=== PATIENT | female | born 1980 | race African-American/Black ===

== ENCOUNTER 2021-03-23 08:49 | Inpatient (IN) | payer MEDICAID ==
[~2021-03-23] VITALS: Ht 177.8 cm; Wt 168.4 kg
[2021-03-23] MEDS ORDERED: DexAMETHasone SOD PHOS 10MG/1ML VIAL INJ IV ONE (09:45)
[2021-03-23] MEDS ORDERED: cefTRIAXone 1GM/50ML D5W 50 ML IV ONE (09:45)
[2021-03-23 10:02] LABS: Basophils # (auto) 0 10 ^3/uL (0-0.2); Eosinophils # (auto) 0 10 ^3/uL (0-0.8); Hematocrit 29.8 % (36.0-46.0); Hemoglobin 9.7 g/dL (12.2-16.2); Lymphocytes # (auto) 0.8 10 ^3/uL (0.4-5.4); Mean Corpuscular Hgb Conc. 32.7 g/dL (32.0-36.0); Monocytes # (auto) 0.5 10 ^3/uL (0-1.3); Neutrophils # (auto) 5.8 10 ^3/uL (1.6-8.6); Nucleated Red Blood Cells % 0.1 %; Red Blood Cells 3.91 10^6/uL (4.0-5.20)
[2021-03-23 10:04] LABS: Basophils % (auto) 0.5 % (0.0-2.0); Lymphocytes % (auto) 11.6 % (10.0-50.0); Mean Corpuscular Hemoglobin 24.8 pg (28.0-32.0); Monocytes % (auto) 7.4 % (0.0-12.0); Neutrophils % (auto) 80.5 % (37.0-80.0); Red Cell Distribution Width 14.6 % (11.8-14.3); White Blood Cell 7.2 10^3/uL (4.4-10.8)
[2021-03-23 10:23] LABS: Albumin 2.5 g/dL (3.4-5.0); Calcium 8.5 mg/dL (8.5-10.1); Potassium 3.3 mmol/L (3.5-5.1)
[2021-03-23 10:24] LABS: Lactic Acid w/Reflex 2.5 mmol/L (0.4-2.0)
[2021-03-23 10:32] LABS: Bilirubin, Total 0.4 mg/dL (0.2-1.0); CRP High Sensitivity 11.4 mg/dL (< 0.3); Total Protein 7.8 g/dL (6.4-8.2)
[2021-03-23] MEDS ORDERED: REMDESIVIR PER PHARMACY 0 ML IV SCH (13:15)
[2021-03-23] MEDS ORDERED: MORPHINE SULFATE INJECTION 2 MG/2 ML SYRG IV PRN (13:15)
[2021-03-23] MEDS ORDERED: DEXTROSE (50%) 50ML SYRG IV PRN (13:15)
[2021-03-23] MEDS ORDERED: NITROGLYCERIN 0.4 MG SL TAB SL PRN (13:15)
[2021-03-23] MEDS ORDERED: guaiFENesin-DM 100/10mg/5ml SYR PO PRN (13:15)
[2021-03-23] MEDS ORDERED: ACETAMINOPHEN 500 MG TAB PO PRN (13:15)
[2021-03-23 16:00] VITALS: BP 161/78
[2021-03-23] MEDS: ACCU-CHEK COMFORT CURVE STRIP VI SCH ×2 (16:42→22:09)
[2021-03-23] MEDS: InsuLIN REG 1unit/0.01ml Soln (100units/ml) SC SCH ×2 (16:42→22:19)
[2021-03-23] MEDS: ENOXAPARIN SOD 40 MG/0.4 ML SYRINGE SC SCH (22:09)
[2021-03-24 05:41] VITALS: BP 158/105
[2021-03-24 05:45] VITALS: BP 158/105
[2021-03-24] MEDS: InsuLIN REG 1unit/0.01ml Soln (100units/ml) SC SCH ×4 (06:29→21:43)
[2021-03-24] MEDS: ACCU-CHEK COMFORT CURVE STRIP VI SCH ×4 (06:30→21:32)
[2021-03-24] MEDS ORDERED: METF-370 PO (06:56)
[2021-03-24] MEDS ORDERED: IVERMECTIN 3 MG TAB PO ONE ×2 (07:00)
[2021-03-24 09:00] VITALS: BP 134/90
[2021-03-24] MEDS: cefTRIAXone 1GM/50ML D5W 50 ML IV SCH (10:04)
[2021-03-24] MEDS: ENOXAPARIN SOD 40 MG/0.4 ML SYRINGE SC SCH ×2 (10:04→21:32)
[2021-03-24] MEDS: AZITHROMYCIN 500MG/ 250ML 250 ML IV SCH (10:04)
[2021-03-24] MEDS: ASCORBIC ACID 1,000 MG TAB PO SCH (10:05)
[2021-03-24] MEDS: DexAMETHasone SOD PHOS 10MG/1ML VIAL INJ IV SCH (10:05)
[2021-03-24] MEDS: ZINC SULFATE 220mg CAP or TAB PO SCH (10:05)
[2021-03-24] MEDS: CHOLECALCIFEROL (VITD3) 2,000 UNIT CAP/TAB PO SCH (10:06)
[2021-03-24] MEDS: ALBUTEROL SULF HFA 90MCG INH 200DOSE IN PRN ×2 (10:07→22:51)
[2021-03-24] MEDS: BUDESONIDE (INHALATION) 180 MCG IH IN SCH ×2 (10:07→22:00)
[2021-03-24] MEDS ORDERED: hydrALAZINE HCL 20 MG/ML VL IV PRN (12:30)
[2021-03-24] MEDS ORDERED: amLODIPine BESYLATE 5 MG TAB PO ONE (12:30)
[2021-03-24 12:37] VITALS: BP 142/90
[2021-03-24] MEDS ORDERED: REMDESIVIR 200 MG in NS 210ml LOADING DOSE ADULT IV ONE (15:00)
[2021-03-24 16:42] VITALS: BP 139/91
[2021-03-24] MEDS: INSULIN LANTUS (GLARGINE) 1 /0.01ml (100units/ml) SC SCH (21:43)
[2021-03-24 22:00] VITALS: BP 129/85
[2021-03-25 05:00] VITALS: BP 152/87
[2021-03-25] MEDS: ACCU-CHEK COMFORT CURVE STRIP VI SCH ×4 (06:36→22:05)
[2021-03-25] MEDS: InsuLIN REG 1unit/0.01ml Soln (100units/ml) SC SCH ×4 (06:40→22:07)
[2021-03-25 06:45] LABS: Basophils # (auto) 0 10 ^3/uL (0-0.2); Basophils % (auto) 0.2 % (0.0-2.0); Monocytes # (auto) 0.5 10 ^3/uL (0-1.3); Nucleated Red Blood Cells % 0.4 %; Red Cell Distribution Width 14.8 % (11.8-14.3)
[2021-03-25 06:54] LABS: Eosinophils # (auto) 0.1 10 ^3/uL (0-0.8); Eosinophils % (auto) 2.3 % (0.0-7.0); Hematocrit 35.6 % (36.0-46.0); Lymphocytes # (auto) 1.2 10 ^3/uL (0.4-5.4); Lymphocytes % (auto) 26.4 % (10.0-50.0); Mean Corpuscular Hgb Conc. 33.8 g/dL (32.0-36.0); Mean Corpuscular Volume 77.1 fL (80.0-100.0); Monocytes % (auto) 11.5 % (0.0-12.0); Neutrophils # (auto) 2.7 10 ^3/uL (1.6-8.6); Neutrophils % (auto) 59.6 % (37.0-80.0); Red Blood Cells 4.62 10^6/uL (4.0-5.20); White Blood Cell 4.5 10^3/uL (4.4-10.8)
[2021-03-25] MEDS: ALBUTEROL SULF HFA 90MCG INH 200DOSE IN PRN ×2 (06:57→20:23)
[2021-03-25] MEDS: BUDESONIDE (INHALATION) 180 MCG IH IN SCH ×2 (06:57→20:22)
[2021-03-25 07:16] LABS: Albumin 2.1 g/dL (3.4-5.0); BUN/Creatinine Ratio 17.6; Bilirubin, Total 0.3 mg/dL (0.2-1.0); Calcium 8.1 mg/dL (8.5-10.1); Total Protein 7.1 g/dL (6.4-8.2)
[2021-03-25 07:41] LABS: CRP High Sensitivity 8.55 mg/dL (< 0.3); Potassium 3.9 mmol/L (3.5-5.1)
[2021-03-25] MEDS ORDERED: HYDROcodone-ACET 5/325MG TAB PO PRN (08:15)
[2021-03-25] MEDS: PANTOPRAZOLE 40 MG/10 ML VIAL INJ IV SCH (08:36)
[2021-03-25] MEDS: DexAMETHasone SOD PHOS 10MG/1ML VIAL INJ IV SCH (08:36)
[2021-03-25] MEDS: cefTRIAXone 1GM/50ML D5W 50 ML IV SCH (08:36)
[2021-03-25] MEDS: CHOLECALCIFEROL (VITD3) 2,000 UNIT CAP/TAB PO SCH (08:37)
[2021-03-25] MEDS: ZINC SULFATE 220mg CAP or TAB PO SCH (08:37)
[2021-03-25] MEDS: ASCORBIC ACID 1,000 MG TAB PO SCH (08:37)
[2021-03-25] MEDS: INSULIN LANTUS (GLARGINE) 1 /0.01ml (100units/ml) SC SCH ×2 (08:57→22:07)
[2021-03-25 09:00] VITALS: BP 161/88
[2021-03-25] MEDS: AZITHROMYCIN 500MG/ 250ML 250 ML IV SCH (10:28)
[2021-03-25] MEDS: ENOXAPARIN SOD 40 MG/0.4 ML SYRINGE SC SCH ×2 (10:29→22:05)
[2021-03-25] MEDS: amLODIPine BESYLATE 5 MG TAB PO SCH (10:29)
[2021-03-25 13:00] VITALS: BP 159/87
[2021-03-25] MEDS ORDERED: POTASSIUM CHL 20 Meq TABLET PO ONE (14:45)
[2021-03-25] MEDS: REMDESIVIR 100mg 100 MG in SODIUM CHL 0.9% 230 ML IV SCH (14:59)
[2021-03-25 17:00] VITALS: BP 159/83
[2021-03-25 22:00] VITALS: BP 138/83
[2021-03-26 05:00] VITALS: BP 135/80
[2021-03-26] MEDS: InsuLIN REG 1unit/0.01ml Soln (100units/ml) SC SCH ×4 (06:22→23:00)
[2021-03-26] MEDS: ACCU-CHEK COMFORT CURVE STRIP VI SCH ×4 (06:23→23:00)
[2021-03-26] MEDS: BUDESONIDE (INHALATION) 180 MCG IH IN SCH ×2 (07:32→22:00)
[2021-03-26] MEDS: ALBUTEROL SULF HFA 90MCG INH 200DOSE IN PRN ×2 (07:32→22:44)
[2021-03-26 07:42] LABS: Albumin 2.4 g/dL (3.4-5.0); BUN/Creatinine Ratio 17.3; Bilirubin, Total 0.5 mg/dL (0.2-1.0); Calcium 8.8 mg/dL (8.5-10.1); Magnesium 2.6 mg/dL (1.6-2.6); Phosphorus 3.1 mg/dL (2.5-4.90); Potassium 4.9 mmol/L (3.5-5.1); Total Protein 8.1 g/dL (6.4-8.2)
[2021-03-26] MEDS: cefTRIAXone 1GM/50ML D5W 50 ML IV SCH (09:25)
[2021-03-26] MEDS: PANTOPRAZOLE 40 MG/10 ML VIAL INJ IV SCH (09:26)
[2021-03-26] MEDS: ASCORBIC ACID 1,000 MG TAB PO SCH (09:27)
[2021-03-26] MEDS: ZINC SULFATE 220mg CAP or TAB PO SCH (09:27)
[2021-03-26] MEDS: amLODIPine BESYLATE 5 MG TAB PO SCH (09:27)
[2021-03-26 09:28] VITALS: BP 101/69
[2021-03-26] MEDS: CHOLECALCIFEROL (VITD3) 2,000 UNIT CAP/TAB PO SCH (09:28)
[2021-03-26] MEDS: ENOXAPARIN SOD 40 MG/0.4 ML SYRINGE SC SCH ×2 (09:28→23:00)
[2021-03-26] MEDS: INSULIN LANTUS (GLARGINE) 1 /0.01ml (100units/ml) SC SCH ×2 (10:07→23:00)
[2021-03-26] MEDS: DexAMETHasone SOD PHOS 10MG/1ML VIAL INJ IV SCH (10:14)
[2021-03-26 11:10] VITALS: BP 101/69
[2021-03-26] MEDS: REMDESIVIR 100mg 100 MG in SODIUM CHL 0.9% 230 ML IV SCH (13:53)
[2021-03-26] MEDS ORDERED: ALPRAZolam 0.5 MG TAB PO PRN (14:15)
[2021-03-26] MEDS ORDERED: LACTULOSE 20Gm/30ML SOLN PO PRN (14:15)
[2021-03-26 17:12] VITALS: BP 126/80
[2021-03-26 22:20] VITALS: BP 131/84
[2021-03-27 05:20] VITALS: BP 134/75
[2021-03-27 05:46] LABS: Urine Bacteria NONE SEEN /hpf (None Seen); Urine Blood 2+ /uL (Negative); Urine Hyaline Cast FEW /lpf (0 - 2); Urine Mucus FEW (None Seen); Urine Specific Gravity 1.023 (1.001-1.035); Urine WBC 79 /hpf (0 - 5)
[2021-03-27 06:42] LABS: Basophils # (auto) 0 10 ^3/uL (0-0.2); Basophils % (auto) 0.1 % (0.0-2.0); Eosinophils # (auto) 0 10 ^3/uL (0-0.8); Eosinophils % (auto) 0.1 % (0.0-7.0); Lymphocytes # (auto) 1.3 10 ^3/uL (0.4-5.4); Mean Corpuscular Hemoglobin 25.5 pg (28.0-32.0); Monocytes # (auto) 0.7 10 ^3/uL (0-1.3)
[2021-03-27 06:46] LABS: Hematocrit 35.2 % (36.0-46.0); Hemoglobin 11.8 g/dL (12.2-16.2); Lymphocytes % (auto) 20.5 % (10.0-50.0); Mean Corpuscular Hgb Conc. 33.6 g/dL (32.0-36.0); Neutrophils # (auto) 4.2 10 ^3/uL (1.6-8.6); Neutrophils % (auto) 68.3 % (37.0-80.0); Nucleated Red Blood Cells % 0.1 %; Red Blood Cells 4.63 10^6/uL (4.0-5.20); Red Cell Distribution Width 14.7 % (11.8-14.3); White Blood Cell 6.2 10^3/uL (4.4-10.8)
[2021-03-27 06:58] LABS: Albumin 2.5 g/dL (3.4-5.0); Calcium 8.7 mg/dL (8.5-10.1); Magnesium 2.3 mg/dL (1.6-2.6); Potassium 3.5 mmol/L (3.5-5.1)
[2021-03-27] MEDS: InsuLIN REG 1unit/0.01ml Soln (100units/ml) SC SCH ×4 (07:00→22:07)
[2021-03-27] MEDS: ALBUTEROL SULF HFA 90MCG INH 200DOSE IN PRN ×2 (07:00→19:48)
[2021-03-27] MEDS: ACCU-CHEK COMFORT CURVE STRIP VI SCH ×4 (07:00→22:05)
[2021-03-27] MEDS: BUDESONIDE (INHALATION) 180 MCG IH IN SCH ×2 (07:00→19:45)
[2021-03-27 07:10] LABS: BUN/Creatinine Ratio 18.4; Bilirubin, Total 0.4 mg/dL (0.2-1.0); CRP High Sensitivity 4.63 mg/dL (< 0.3); Phosphorus 3.7 mg/dL (2.5-4.90); Total Protein 7.3 g/dL (6.4-8.2)
[2021-03-27 09:00] VITALS: BP 125/75
[2021-03-27] MEDS: DexAMETHasone SOD PHOS 10MG/1ML VIAL INJ IV SCH (09:31)
[2021-03-27] MEDS: cefTRIAXone 1GM/50ML D5W 50 ML IV SCH (09:31)
[2021-03-27] MEDS: ZINC SULFATE 220mg CAP or TAB PO SCH (09:32)
[2021-03-27] MEDS: PANTOPRAZOLE 40 MG/10 ML VIAL INJ IV SCH (09:32)
[2021-03-27] MEDS: amLODIPine BESYLATE 5 MG TAB PO SCH (09:33)
[2021-03-27] MEDS: ASCORBIC ACID 1,000 MG TAB PO SCH (09:34)
[2021-03-27] MEDS: AZITHROMYCIN 250 MG TAB PO SCH (09:34)
[2021-03-27] MEDS: ENOXAPARIN SOD 40 MG/0.4 ML SYRINGE SC SCH ×2 (09:34→21:24)
[2021-03-27] MEDS: CHOLECALCIFEROL (VITD3) 2,000 UNIT CAP/TAB PO SCH (09:34)
[2021-03-27] MEDS: INSULIN LANTUS (GLARGINE) 1 /0.01ml (100units/ml) SC SCH ×2 (09:52→22:06)
[2021-03-27] MEDS ORDERED: IOHEXOL 350 MG/ML 100ML IJ ONE (10:09)
[2021-03-27 13:00] VITALS: BP 125/86
[2021-03-27] MEDS: REMDESIVIR 100mg 100 MG in SODIUM CHL 0.9% 230 ML IV SCH (15:22)
[2021-03-27 17:00] VITALS: BP 116/64
[2021-03-27 22:20] VITALS: BP 141/83
[2021-03-28 05:28] VITALS: BP 129/75
[2021-03-28] MEDS: InsuLIN REG 1unit/0.01ml Soln (100units/ml) SC SCH ×4 (06:06→21:32)
[2021-03-28] MEDS: ACCU-CHEK COMFORT CURVE STRIP VI SCH ×4 (06:06→21:32)
[2021-03-28] MEDS: ALBUTEROL SULF HFA 90MCG INH 200DOSE IN PRN ×2 (06:22→20:09)
[2021-03-28 09:00] VITALS: BP 108/83
[2021-03-28] MEDS: cefTRIAXone 1GM/50ML D5W 50 ML IV SCH (10:20)
[2021-03-28] MEDS: DexAMETHasone SOD PHOS 10MG/1ML VIAL INJ IV SCH (10:20)
[2021-03-28] MEDS: ZINC SULFATE 220mg CAP or TAB PO SCH (10:20)
[2021-03-28] MEDS: PANTOPRAZOLE 40 MG/10 ML VIAL INJ IV SCH (10:20)
[2021-03-28] MEDS: CHOLECALCIFEROL (VITD3) 2,000 UNIT CAP/TAB PO SCH (10:21)
[2021-03-28] MEDS: amLODIPine BESYLATE 5 MG TAB PO SCH (10:21)
[2021-03-28] MEDS: ENOXAPARIN SOD 40 MG/0.4 ML SYRINGE SC SCH ×2 (10:21→21:17)
[2021-03-28] MEDS: AZITHROMYCIN 250 MG TAB PO SCH (10:21)
[2021-03-28] MEDS: ASCORBIC ACID 1,000 MG TAB PO SCH (10:21)
[2021-03-28] MEDS: INSULIN LANTUS (GLARGINE) 1 /0.01ml (100units/ml) SC SCH ×2 (12:18→21:29)
[2021-03-28 13:00] VITALS: BP 133/75
[2021-03-28] MEDS: REMDESIVIR 100mg 100 MG in SODIUM CHL 0.9% 230 ML IV SCH (16:22)
[2021-03-28 17:00] VITALS: BP 126/87
[2021-03-28] MEDS: BUDESONIDE (INHALATION) 180 MCG IH IN SCH (20:09)
[2021-03-28 22:00] VITALS: BP 137/75
[2021-03-29 05:00] VITALS: BP 127/68
[2021-03-29] MEDS: ALBUTEROL SULF HFA 90MCG INH 200DOSE IN PRN (05:55)
[2021-03-29] MEDS: BUDESONIDE (INHALATION) 180 MCG IH IN SCH (05:55)
[2021-03-29] MEDS: InsuLIN REG 1unit/0.01ml Soln (100units/ml) SC SCH ×2 (06:43→11:58)
[2021-03-29] MEDS: ACCU-CHEK COMFORT CURVE STRIP VI SCH ×2 (06:43→11:57)
[2021-03-29 07:03] LABS: Basophils # (auto) 0.1 10 ^3/uL (0-0.2); Basophils % (auto) 0.9 % (0.0-2.0); Eosinophils # (auto) 0 10 ^3/uL (0-0.8); Eosinophils % (auto) 0.5 % (0.0-7.0); Hematocrit 33.9 % (36.0-46.0); Hemoglobin 11.1 g/dL (12.2-16.2); Lymphocytes # (auto) 1.9 10 ^3/uL (0.4-5.4); Lymphocytes % (auto) 28.9 % (10.0-50.0); Mean Corpuscular Hemoglobin 25.1 pg (28.0-32.0); Mean Corpuscular Hgb Conc. 32.7 g/dL (32.0-36.0); Mean Corpuscular Volume 76.7 fL (80.0-100.0); Monocytes # (auto) 0.7 10 ^3/uL (0-1.3); Monocytes % (auto) 9.8 % (0.0-12.0); Neutrophils % (auto) 59.9 % (37.0-80.0); Nucleated Red Blood Cells % 0.1 %; Red Blood Cells 4.43 10^6/uL (4.0-5.20); Red Cell Distribution Width 14.5 % (11.8-14.3); White Blood Cell 6.7 10^3/uL (4.4-10.8)
[2021-03-29 07:44] LABS: Potassium 3.7 mmol/L (3.5-5.1)
[2021-03-29 08:00] VITALS: BP 130/86
[2021-03-29 08:09] LABS: Albumin 2.1 g/dL (3.4-5.0); BUN/Creatinine Ratio 24.3; Bilirubin, Total 0.3 mg/dL (0.2-1.0); CRP High Sensitivity 1.78 mg/dL (< 0.3); Calcium 8.2 mg/dL (8.5-10.1); Total Protein 6.7 g/dL (6.4-8.2)
[2021-03-29 09:01] VITALS: BP 130/86
[2021-03-29] MEDS: ZINC SULFATE 220mg CAP or TAB PO SCH (09:38)
[2021-03-29] MEDS: PANTOPRAZOLE 40 MG/10 ML VIAL INJ IV SCH (09:38)
[2021-03-29] MEDS: cefTRIAXone 1GM/50ML D5W 50 ML IV SCH (09:38)
[2021-03-29] MEDS: CHOLECALCIFEROL (VITD3) 2,000 UNIT CAP/TAB PO SCH (09:39)
[2021-03-29] MEDS: amLODIPine BESYLATE 5 MG TAB PO SCH (09:39)
[2021-03-29] MEDS: ASCORBIC ACID 1,000 MG TAB PO SCH (09:39)
[2021-03-29] MEDS: ENOXAPARIN SOD 40 MG/0.4 ML SYRINGE SC SCH (09:40)
[2021-03-29] MEDS: INSULIN LANTUS (GLARGINE) 1 /0.01ml (100units/ml) SC SCH (10:30)
[2021-03-29 12:00] VITALS: BP 129/83
[2021-03-29 15:07] VITALS: BP 129/83
== END 2021-03-29 13:49 | disposition home or self-care (01) | DRG 137 ==
LOC: ER 08:49 → TELE 13:10 → TELE-EAST 03-24 05:00
PROVIDERS: ADMIT Nurse Practitioner Acute Care; ATTEND Internal Medicine
PROC: XW033E5 Introduction of Remdesivir Anti-infective into Peripheral Vein, Percutaneous Approach, New Technology Group 5 (ICD-10-PCS; principal; 2021-03-24)
DX: U07.1 COVID-19 (principal); J96.01 Acute respiratory failure with hypoxia; J12.82 Pneumonia due to coronavirus disease 2019; E43 Unspecified severe protein-calorie malnutrition; E87.3 Alkalosis; D68.59 Other primary thrombophilia; D89.839 Cytokine release syndrome, grade unspecified; Z68.43 Body mass index [BMI] 50.0-59.9, adult; E11.65 Type 2 diabetes mellitus with hyperglycemia; E66.01 Morbid (severe) obesity due to excess calories; J44.0 Chronic obstructive pulmonary disease with (acute) lower respiratory infection; Z82.49 Family history of ischemic heart disease and other diseases of the circulatory system; Z83.3 Family history of diabetes mellitus; Z88.5 Allergy status to narcotic agent
CPT/HCPCS: 36415; 36600; 71045; 71275; 80053; 81001; 82728; 82805; 82962; 83036; 83605; 83735; 84100; 84702; 85025; 85379; 86141; 87040; 87086; 87426; 93970; 94640; 96374; 97110; 97116; 97163; 97530; 99291; C9113; G0378; J0696; J1100; J1815

== ENCOUNTER 2023-02-08 13:17 | Emergency (ER) | payer MEDICAID ==
[~2023-02-08] VITALS: Ht 180.3 cm; Wt 135.9 kg
[~2023-02-08 13:17] MED LIST: METF-370 PO
[2023-02-08 14:59] LABS: Basophils # (auto) 0 10 ^3/uL (0-0.2); Eosinophils # (auto) 0 10 ^3/uL (0-0.8); Lymphocytes % (auto) 15.5 % (10.0-50.0); Neutrophils # (auto) 6.2 10 ^3/uL (1.6-8.6); Nucleated Red Blood Cells % 0.1 %
[2023-02-08 15:01] LABS: Basophils % (auto) 0.6 % (0.0-2.0); Eosinophils % (auto) 0.1 % (0.0-7.0); Lymphocytes # (auto) 1.3 10 ^3/uL (0.4-5.4); Mean Corpuscular Hemoglobin 19.6 pg (28.0-32.0); Mean Corpuscular Hgb Conc. 30.1 g/dL (32.0-36.0); Mean Corpuscular Volume 65.1 fL (80.0-100.0); Monocytes # (auto) 0.6 10 ^3/uL (0-1.3); Monocytes % (auto) 6.9 % (0.0-12.0); Neutrophils % (auto) 76.9 % (37.0-80.0); Red Blood Cells 4.61 10^6/uL (4.0-5.20); Red Cell Distribution Width 16.4 % (11.8-14.3); White Blood Cell 8.1 10^3/uL (4.4-10.8)
[2023-02-08 15:12] LABS: Albumin 3.1 g/dL (3.4-5.0); Calcium 8.7 mg/dL (8.5-10.1); Potassium 3.7 mmol/L (3.5-5.1)
[2023-02-08 15:15] LABS: BUN/Creatinine Ratio 8.2 (10.0-20.0); Bilirubin, Total 0.3 mg/dL (0.2-1.0); Total Protein 7.2 g/dL (6.4-8.2)
[2023-02-08] MEDS ORDERED: methylPREDNISolone SOD SUCC 125 MG/2 ML VL IM ONE (16:00)
[2023-02-08] MEDS ORDERED: KETOROLAC TROMETH 30 MG/ML 1ML VIAL IM ONE (16:00)
[2023-02-08] MEDS ORDERED: DICL-163 PO (17:10)
[2023-02-08] MEDS ORDERED: CYCL-837 PO (17:10)
[2023-02-08 17:42] VITALS: BP 141/57
== END 2023-02-08 17:42 | disposition home or self-care (01) ==
LOC: ER 13:17
DX: D64.9 Anemia, unspecified (principal); G24.3 Spasmodic torticollis; J44.9 Chronic obstructive pulmonary disease, unspecified; E11.9 Type 2 diabetes mellitus without complications; R10.2 Pelvic and perineal pain; Z88.5 Allergy status to narcotic agent
CPT/HCPCS: 36415; 70450; 80053; 84702; 85025; 93005; 96372; 99285; J1885; J2930

== ENCOUNTER 2023-09-02 09:00 | Inpatient (IN) | payer MEDICAID ==
[~2023-09-02] VITALS: Ht 177.8 cm; Wt 103.0 kg
[~2023-09-02 09:00] MED LIST changes: +CYCL-837 PO; +DICL-163 PO
[2023-09-02 09:48] LABS: Basophils # (auto) 0.1 10 ^3/uL (0-0.2); Eosinophils # (auto) 0.3 10 ^3/uL (0-0.8); Hematocrit 44.1 % (36.0-46.0); Lymphocytes # (auto) 2.1 10 ^3/uL (0.4-5.4); Mean Corpuscular Hemoglobin 26.1 pg (28.0-32.0); Monocytes # (auto) 0.6 10 ^3/uL (0-1.3); White Blood Cell 5.2 10^3/uL (4.4-10.8)
[2023-09-02 09:50] LABS: Basophils % (auto) 1.5 % (0.0-2.0); Eosinophils % (auto) 6.6 % (0.0-7.0); Hemoglobin 14.5 g/dL (12.2-16.2); Lymphocytes % (auto) 41.3 % (10.0-50.0); Mean Corpuscular Hgb Conc. 32.9 g/dL (32.0-36.0); Mean Corpuscular Volume 79.3 fL (80.0-100.0); Neutrophils % (auto) 39.6 % (37.0-80.0); Nucleated Red Blood Cells % 0.3 %; Red Blood Cells 5.57 10^6/uL (4.0-5.20); Red Cell Distribution Width 16.5 % (11.8-14.3)
[2023-09-02 10:04] LABS: INR 1.18 (0.9-1.15); Partial Thromboplastin Time 36.7 SEC (24.5-34.5); Prothrombin Time 12.3 sec (9.3-11.8)
[2023-09-02] MEDS: SODIUM CHLORIDE 0.9% 1,000 ML IV ONE ×2 (10:45→10:48)
[2023-09-02 10:47] LABS: Alanine Aminotransferase 18 U/L (7-40); Alkaline Phosphatase 76 U/L (46-116); Anion Gap 17 (5-15); Aspartate Aminotransferase 28 U/L (13-40); BUN/Creatinine Ratio 8.5 (10.0-20.0); Blood Urea Nitrogen 11 mg/dL (9-23); Calcium 9.6 mg/dL (8.7-10.4); Carbon Dioxide 22 mmol/L (20-30); Chloride 93 mmol/L (98-107); Glucose 121 mg/dL (74-106); Magnesium 1.5 mg/dL (1.6-2.6); Potassium 3.6 mmol/L (3.5-5.1); Sodium 132 mmol/L (136-145)
[2023-09-02 10:48] LABS: Albumin 3.9 g/dL (3.2-4.8); Bilirubin, Total 0.8 mg/dL (0.2-1.0); Total Protein 7.2 g/dL (5.7-8.2)
[2023-09-02 14:28] VITALS: PULSE 102; RESP 13; O2SAT 98
[2023-09-02] MEDS ORDERED: TEMAZEPAM 15 MG CAP PO PRN (15:15)
[2023-09-02] MEDS ORDERED: NITROGLYCERIN 0.4 MG SL TAB SL PRN ×2 (15:15→15:30)
[2023-09-02] MEDS: SODIUM CHLORIDE 0.9% 1,000 ML IV SCH (15:30)
[2023-09-02] MEDS ORDERED: KETOROLAC TROMETH 30 MG/ML 1ML VIAL IV PRN (15:30)
[2023-09-02 22:00] VITALS: BP 134/83; PULSE 50; RESP 17; TEMP 98.2; O2SAT 92
[2023-09-03] MEDS: ACCU-CHEK COMFORT CURVE STRIP VI SCH (00:50)
[2023-09-03] MEDS: InsuLIN REG 1unit/0.01ml Soln (100units/ml) SC SCH (00:50)
[2023-09-03 05:00] VITALS: BP 131/79; PULSE 90; RESP 20; TEMP 98.3; O2SAT 99
[2023-09-03 05:29] LABS: Eosinophils # (auto) 0.3 10 ^3/uL (0-0.8); Hemoglobin 13.2 g/dL (12.2-16.2); Lymphocytes # (auto) 1.5 10 ^3/uL (0.4-5.4); Mean Corpuscular Hgb Conc. 33.4 g/dL (32.0-36.0); Monocytes # (auto) 0.5 10 ^3/uL (0-1.3); Neutrophils # (auto) 1.6 10 ^3/uL (1.6-8.6); Nucleated Red Blood Cells % 0.2 %; Red Cell Distribution Width 16.1 % (11.8-14.3)
[2023-09-03 05:32] LABS: Basophils # (auto) 0 10 ^3/uL (0-0.2); Basophils % (auto) 1.2 % (0.0-2.0); Eosinophils % (auto) 8.4 % (0.0-7.0); Hematocrit 39.4 % (36.0-46.0); Lymphocytes % (auto) 37.9 % (10.0-50.0); Mean Corpuscular Hemoglobin 26.5 pg (28.0-32.0); Mean Corpuscular Volume 79.3 fL (80.0-100.0); Monocytes % (auto) 12.4 % (0.0-12.0); Neutrophils % (auto) 40.1 % (37.0-80.0); Red Blood Cells 4.97 10^6/uL (4.0-5.20)
[2023-09-03 05:49] LABS: Alanine Aminotransferase 13 U/L (7-40); Albumin 3.7 g/dL (3.2-4.8); Alkaline Phosphatase 69 U/L (46-116); Anion Gap 11 (5-15); Aspartate Aminotransferase 29 U/L (13-40); BUN/Creatinine Ratio 5.6 (10.0-20.0); Blood Urea Nitrogen 6 mg/dL (9-23); Calcium 9.7 mg/dL (8.5-10.1); Carbon Dioxide 25 mmol/L (20-30); Chloride 96 mmol/L (98-107); Glucose 78 mg/dL (74-106); LDL Cholesterol 120 mg/dL (< 100); Potassium 3.2 mmol/L (3.5-5.1); Sodium 132 mmol/L (136-145); Triglycerides 134 mg/dL (< 150)
[2023-09-03 05:50] LABS: Bilirubin, Total 0.8 mg/dL (0.2-1.0); Cholesterol 165 mg/dL (< 200); HDL Cholesterol 26 mg/dL (40-59)
[2023-09-03 06:30] LABS: Urine Epithelial Cast None Seen /hpf (<5)
[2023-09-03 06:53] LABS: Urine Bacteria NONE SEEN /hpf (None Seen); Urine Blood 3+ /uL (Negative); Urine Clarity HAZY (Clear); Urine Color Red (Yellow); Urine Hyaline Cast MANY /lpf (0 - 2); Urine Protein, UAD 2+ (Negative); Urine WBC 1094 /hpf (0 - 5); Urine WBC Clumps PRESENT /hpf (None Seen); Urine pH 5.5 (5.0-8.0)
[2023-09-03 08:00] VITALS: BP 119/62; PULSE 102; RESP 16; TEMP 36.9; O2SAT 90
[2023-09-03] MEDS: ENOXAPARIN SOD 40 MG/0.4 ML SYRINGE SC SCH (09:49)
[2023-09-03] MEDS: POTASSIUM CHL 20 Meq TABLET PO ONE (09:50)
[2023-09-03] MEDS: PANTOPRAZOLE 40 MG/10 ML VIAL INJ IV SCH (09:50)
[2023-09-03 13:00] VITALS: BP 110/80; PULSE 101; RESP 17; TEMP 97.6; O2SAT 100
[2023-09-03] MEDS: POTASSIUM EFFERVESENT TAB 25 MEQ PO ONE (15:42)
[2023-09-03 17:00] VITALS: BP 116/59; PULSE 58; RESP 22; TEMP 98.4; O2SAT 90
[2023-09-03 17:32] LABS: % Iron Saturation 60.9 % (15-50)
[2023-09-03] MEDS: CEFTRIAXONE SODIUM 2 GM in D5W 5% 100 ML IV SCH (17:45)
[2023-09-03 20:00] VITALS: PULSE 94; RESP 18; TEMP 36.9
[2023-09-03 22:00] VITALS: BP 119/94; PULSE 99; RESP 18; TEMP 98.5; O2SAT 100
[2023-09-04] VITALS (7 sets, daily range): BP systolic 115–121; BP diastolic 83–93; PULSE 104–117; RESP 17–20; TEMP 36.9; O2SAT 97–100
[2023-09-04 08:49] LABS: Basophils # (auto) 0 10 ^3/uL (0-0.2); Basophils % (auto) 0.9 % (0.0-2.0); Mean Corpuscular Hemoglobin 26.3 pg (28.0-32.0); Monocytes # (auto) 0.4 10 ^3/uL (0-1.3); Neutrophils # (auto) 1.6 10 ^3/uL (1.6-8.6); Nucleated Red Blood Cells % 0.1 %; White Blood Cell 3.3 10^3/uL (4.4-10.8)
[2023-09-04 08:52] LABS: Eosinophils # (auto) 0.2 10 ^3/uL (0-0.8); Eosinophils % (auto) 7.5 % (0.0-7.0); Hematocrit 38.9 % (36.0-46.0); Hemoglobin 12.9 g/dL (12.2-16.2); Lymphocytes % (auto) 31.2 % (10.0-50.0); Mean Corpuscular Hgb Conc. 33.2 g/dL (32.0-36.0); Mean Corpuscular Volume 79.3 fL (80.0-100.0); Monocytes % (auto) 12.7 % (0.0-12.0); Neutrophils % (auto) 47.7 % (37.0-80.0); Red Cell Distribution Width 16.2 % (11.8-14.3)
[2023-09-04] MEDS: METOPROLOL TARTRATE 25 MG TAB PO SCH (08:57)
[2023-09-04 09:02] LABS: Alanine Aminotransferase 10 U/L (7-40); Albumin 3.7 g/dL (3.2-4.8); Alkaline Phosphatase 71 U/L (46-116); Anion Gap 9 (5-15); Aspartate Aminotransferase 24 U/L (13-40); Bilirubin, Total 0.5 mg/dL (0.2-1.0); Blood Urea Nitrogen 5 mg/dL (9-23); Calcium 9.4 mg/dL (8.7-10.4); Carbon Dioxide 28 mmol/L (20-30); Chloride 97 mmol/L (98-107); Glucose 65 mg/dL (74-106); Potassium 4.4 mmol/L (3.5-5.1); Sodium 134 mmol/L (136-145)
[2023-09-04] MEDS: ONDANSETRON HCL 4 MG/2 ML VIAL IV PRN (09:14)
[2023-09-05] VITALS (7 sets, daily range): BP systolic 107–131; BP diastolic 66–99; PULSE 75–98; RESP 15–19; TEMP 97.4–98.5; O2SAT 95–100
[2023-09-05] MEDS ORDERED: MAGNESIUM SULFATE 1GM/100ML 100 ML IV SCH
[2023-09-05] MEDS: LINEZOLID 600MG/300ML 300 ML IV SCH (01:21)
[2023-09-05] MEDS: ENOXAPARIN SOD 120 MG/0.8 ML SYRINGE SC SCH (01:34)
[2023-09-05] MEDS: MAGNESIUM SULFATE 1GM/100ML 100 ML IV SCH (02:04)
[2023-09-05 06:03] LABS: Basophils # (auto) 0 10 ^3/uL (0-0.2); Eosinophils # (auto) 0.3 10 ^3/uL (0-0.8); Lymphocytes # (auto) 1.3 10 ^3/uL (0.4-5.4); Monocytes # (auto) 0.4 10 ^3/uL (0-1.3); Neutrophils # (auto) 1.2 10 ^3/uL (1.6-8.6); Nucleated Red Blood Cells % 0.1 %
[2023-09-05 06:07] LABS: Basophils % (auto) 1.2 % (0.0-2.0); Eosinophils % (auto) 9.7 % (0.0-7.0); Hematocrit 34.9 % (36.0-46.0); Hemoglobin 11.8 g/dL (12.2-16.2); Lymphocytes % (auto) 40.2 % (10.0-50.0); Mean Corpuscular Hemoglobin 26.5 pg (28.0-32.0); Mean Corpuscular Hgb Conc. 33.9 g/dL (32.0-36.0); Mean Corpuscular Volume 78.3 fL (80.0-100.0); Monocytes % (auto) 11.4 % (0.0-12.0); Neutrophils % (auto) 37.5 % (37.0-80.0); Red Blood Cells 4.46 10^6/uL (4.0-5.20); Red Cell Distribution Width 15.9 % (11.8-14.3); White Blood Cell 3.2 10^3/uL (4.4-10.8)
[2023-09-05 06:13] LABS: Alanine Aminotransferase 10 U/L (7-40); Albumin 3.2 g/dL (3.2-4.8); Alkaline Phosphatase 62 U/L (46-116); Anion Gap 10 (5-15); Aspartate Aminotransferase 22 U/L (13-40); Bilirubin, Total 0.4 mg/dL (0.2-1.0); Calcium 8.6 mg/dL (8.7-10.4); Carbon Dioxide 23 mmol/L (20-30); Chloride 98 mmol/L (98-107); Glucose 105 mg/dL (74-106); Potassium 3.4 mmol/L (3.5-5.1); Sodium 131 mmol/L (136-145); Total Protein 6.2 g/dL (5.7-8.2)
[2023-09-05 06:28] LABS: BUN/Creatinine Ratio 5.8 (10.0-20.0); Blood Urea Nitrogen < 5 mg/dL (9-23)
[2023-09-05] MEDS: ALBUTEROL SULF 2.5 MG/0.5ML(0.5%) NEB SOLN NEB ONE (19:09)
[2023-09-06] VITALS (7 sets, daily range): BP systolic 109–118; BP diastolic 69–81; PULSE 76–109; RESP 15–18; TEMP 97–98.2; O2SAT 91–93
[2023-09-06 05:56] LABS: Basophils # (auto) 0 10 ^3/uL (0-0.2); Eosinophils # (auto) 0.3 10 ^3/uL (0-0.8); Hemoglobin 11.8 g/dL (12.2-16.2); Lymphocytes # (auto) 1.5 10 ^3/uL (0.4-5.4); Monocytes # (auto) 0.5 10 ^3/uL (0-1.3); Neutrophils # (auto) 1.3 10 ^3/uL (1.6-8.6); Neutrophils % (auto) 36.5 % (37.0-80.0); Nucleated Red Blood Cells % 0.1 %; White Blood Cell 3.5 10^3/uL (4.4-10.8)
[2023-09-06 05:58] LABS: Basophils % (auto) 1.2 % (0.0-2.0); Hematocrit 34.4 % (36.0-46.0); Lymphocytes % (auto) 41.1 % (10.0-50.0); Mean Corpuscular Hemoglobin 26.8 pg (28.0-32.0); Mean Corpuscular Hgb Conc. 34.4 g/dL (32.0-36.0); Mean Corpuscular Volume 77.9 fL (80.0-100.0); Monocytes % (auto) 13.2 % (0.0-12.0); Red Blood Cells 4.42 10^6/uL (4.0-5.20); Red Cell Distribution Width 15.8 % (11.8-14.3)
[2023-09-06 06:10] LABS: Albumin 3.2 g/dL (3.2-4.8); Alkaline Phosphatase 62 U/L (46-116); Anion Gap 13 (5-15); Aspartate Aminotransferase 19 U/L (13-40); Bilirubin, Total 0.4 mg/dL (0.2-1.0); Calcium 8.8 mg/dL (8.7-10.4); Carbon Dioxide 22 mmol/L (20-30); Chloride 99 mmol/L (98-107); Glucose 61 mg/dL (74-106); Magnesium 1.7 mg/dL (1.6-2.6); Potassium 3.4 mmol/L (3.5-5.1); Sodium 134 mmol/L (136-145)
[2023-09-06 06:31] LABS: Alanine Aminotransferase < 9 U/L (7-40); BUN/Creatinine Ratio 5.4 (10.0-20.0); Blood Urea Nitrogen < 5 mg/dL (9-23)
[2023-09-06] MEDS: D5W/SOD CHLO 0.9% 1,000 ML IV SCH (12:44)
[2023-09-06] MEDS: Glucerna Carbsteady SHAKE Vanilla 8oz PO SCH (18:00)
[2023-09-06] MEDS ORDERED: LORazepam 2MG/ML-1ML VIAL IV PRN (22:15)
[2023-09-07] VITALS (8 sets, daily range): BP systolic 99–151; BP diastolic 66–105; PULSE 94–153; RESP 16–25; TEMP 97.9–98.6; O2SAT 92–100
[2023-09-07 06:51] LABS: Alanine Aminotransferase 10 U/L (7-40); Alkaline Phosphatase 63 U/L (46-116); Anion Gap 7 (5-15); Aspartate Aminotransferase 25 U/L (13-40); Bilirubin, Total 0.4 mg/dL (0.2-1.0); Calcium 8.8 mg/dL (8.5-10.1); Carbon Dioxide 26 mmol/L (20-30); Chloride 103 mmol/L (98-107); Glucose 106 mg/dL (74-106); Hemoglobin 11.4 g/dL (12.2-16.2); Mean Corpuscular Hemoglobin 26.2 pg (28.0-32.0); Potassium 3.3 mmol/L (3.5-5.1); Red Blood Cells 4.36 10^6/uL (4.0-5.20); Sodium 136 mmol/L (136-145); Total Protein 5.8 g/dL (5.7-8.2); White Blood Cell 2.8 10^3/uL (4.4-10.8)
[2023-09-07 06:53] LABS: Hematocrit 34.8 % (36.0-46.0); Mean Corpuscular Hgb Conc. 32.8 g/dL (32.0-36.0); Mean Corpuscular Volume 79.9 fL (80.0-100.0)
[2023-09-07 06:56] LABS: BUN/Creatinine Ratio 4.7 (10.0-20.0); Blood Urea Nitrogen < 5 mg/dL (9-23)
[2023-09-07 07:10] LABS: Band Neutrophils % (manual) 0; Basophils % (manual) 0 (0.0-2.0); Blast Cells 0; Metamyelocytes % 0; Myelocytes % 0; Promyelocytes % 0; Reactive Lymphocytes 0
[2023-09-07 08:50] LABS: Eosinophils % (manual) 12 (0-7); Lymphocytes % (manual) 55 (10.0-50.0); Monocytes % (manual) 12 (0-12); Platelet Estimate Adequate
[2023-09-07 12:04] LABS: Magnesium 1.6 mg/dL (1.6-2.6)
[2023-09-07] MEDS: POTASSIUM CHL 20 Meq TABLET PO ONE (13:13)
[2023-09-08 05:00] VITALS: RESP 18
[2023-09-08 10:28] LABS: Basophils # (auto) 0 10 ^3/uL (0-0.2); Eosinophils # (auto) 0.3 10 ^3/uL (0-0.8); Hemoglobin 12.2 g/dL (12.2-16.2); Lymphocytes # (auto) 2.4 10 ^3/uL (0.4-5.4); Nucleated Red Blood Cells % 0.1 %; White Blood Cell 5.4 10^3/uL (4.4-10.8)
[2023-09-08 10:30] LABS: Basophils % (auto) 0.4 % (0.0-2.0); Eosinophils % (auto) 5.3 % (0.0-7.0); Hematocrit 37.2 % (36.0-46.0); Lymphocytes % (auto) 45.3 % (10.0-50.0); Mean Corpuscular Hemoglobin 26.4 pg (28.0-32.0); Mean Corpuscular Hgb Conc. 32.8 g/dL (32.0-36.0); Mean Corpuscular Volume 80.5 fL (80.0-100.0); Monocytes # (auto) 0.9 10 ^3/uL (0-1.3); Monocytes % (auto) 16.5 % (0.0-12.0); Neutrophils # (auto) 1.8 10 ^3/uL (1.6-8.6); Neutrophils % (auto) 32.5 % (37.0-80.0); Red Blood Cells 4.62 10^6/uL (4.0-5.20); Red Cell Distribution Width 15.3 % (11.8-14.3)
[2023-09-08 10:59] LABS: Alanine Aminotransferase 18 U/L (7-40); Albumin 3.3 g/dL (3.2-4.8); Alkaline Phosphatase 74 U/L (46-116); Anion Gap 14 (5-15); Aspartate Aminotransferase 40 U/L (13-40); Calcium 9.1 mg/dL (8.7-10.4); Carbon Dioxide 18 mmol/L (20-30); Chloride 107 mmol/L (98-107); Glucose 108 mg/dL (74-106); Magnesium 1.3 mg/dL (1.6-2.6); Sodium 139 mmol/L (136-145)
[2023-09-08 11:00] LABS: Bilirubin, Total 0.6 mg/dL (0.2-1.0); Total Protein 6.1 g/dL (5.7-8.2)
[2023-09-08 11:03] LABS: BUN/Creatinine Ratio 4.4 (10.0-20.0); Blood Urea Nitrogen < 5 mg/dL (9-23)
[2023-09-08] MEDS: POTASSIUM EFFERVESENT TAB 25 MEQ PO ONE (14:10)
[2023-09-08 20:05] VITALS: RESP 16
[2023-09-08 22:00] VITALS: BP 109/89; PULSE 102; O2SAT 97
[2023-09-08] MEDS: OLANZapine 5 MG TAB PO SCH (22:13)
[2023-09-09 06:06] LABS: RPR Non Reactive (Non Reactive)
[2023-09-09 07:07] LABS: Treponema Pallidum Ab LC Non Reactive (Non Reactive)
[2023-09-09 08:46] VITALS: BP 189/162; PULSE 79; RESP 18; O2SAT 94
[2023-09-09 09:00] VITALS: BP 74/40; PULSE 102; RESP 20; O2SAT 96
[2023-09-09] MEDS: MAGNESIUM SULFATE 1GM/100ML 100 ML IV SCH (10:33)
[2023-09-09 11:21] LABS: Alanine Aminotransferase 21 U/L (7-40); Albumin 3.1 g/dL (3.2-4.8); Alkaline Phosphatase 71 U/L (46-116); Anion Gap 9 (5-15); Aspartate Aminotransferase 43 U/L (13-40); Bilirubin, Total 0.6 mg/dL (0.2-1.0); Blood Urea Nitrogen < 5 mg/dL (9-23); Calcium 9.8 mg/dL (8.5-10.1); Carbon Dioxide 24 mmol/L (20-30); Chloride 110 mmol/L (98-107); Glucose 107 mg/dL (74-106); Potassium 3.5 mmol/L (3.5-5.1); Sodium 143 mmol/L (136-145)
[2023-09-09 11:22] LABS: Total Protein 5.8 g/dL (5.7-8.2)
[2023-09-09 12:57] VITALS: BP 90/52; PULSE 100; RESP 18; O2SAT 99
[2023-09-09 16:52] VITALS: BP 90/42; PULSE 102; RESP 18; O2SAT 98
[2023-09-09 20:00] VITALS: BP 95/61; PULSE 95; PULSE 98; RESP 16; TEMP 100; O2SAT 94; O2SAT 98
[2023-09-09] MEDS: ACETAMINOPHEN 325 MG TAB PO PRN (22:21)
[2023-09-10] VITALS (7 sets, daily range): BP systolic 107–124; BP diastolic 62–79; PULSE 97–109; RESP 19–20; TEMP 98.1–98.4; O2SAT 93–98
[2023-09-11 07:04] LABS: Chloride 113 mmol/L (98-107); Potassium 3.6 mmol/L (3.5-5.1); Sodium 145 mmol/L (136-145)
[2023-09-11 07:05] LABS: Anion Gap 9 (5-15); Calcium 8.8 mg/dL (8.7-10.4); Carbon Dioxide 23 mmol/L (20-30)
[2023-09-11 07:10] LABS: BUN/Creatinine Ratio 4.4 (10.0-20.0); Blood Urea Nitrogen < 5 mg/dL (9-23); Glucose 81 mg/dL (74-106)
[2023-09-11 07:11] LABS: Magnesium 1.8 mg/dL (1.6-2.6)
[2023-09-11 07:12] LABS: Phosphorus 2.5 mg/dL (2.4-5.1)
[2023-09-11 08:00] VITALS: O2SAT 98
[2023-09-11 09:29] VITALS: BP 98/56; PULSE 96; RESP 20; TEMP 97.4; O2SAT 97
[2023-09-11] MEDS: IOHEXOL 350 MG/ML 100ML IJ ONE ×2 (17:54)
[2023-09-11 20:00] VITALS: RESP 20; O2SAT 98
[2023-09-11 21:22] VITALS: BP 97/65; PULSE 98; RESP 19; TEMP 97.9; O2SAT 95
[2023-09-12 04:51] VITALS: BP 102/73; PULSE 96; RESP 19; TEMP 98.2; O2SAT 96
[2023-09-12 08:52] VITALS: BP 118/83; PULSE 100; RESP 18; TEMP 98.6; O2SAT 100
[2023-09-12 13:00] VITALS: BP 125/68; PULSE 118; RESP 20; TEMP 98.4; O2SAT 96
[2023-09-12 16:45] VITALS: BP 127/80; PULSE 107; RESP 18; TEMP 98.6; O2SAT 92
[2023-09-12 20:00] VITALS: RESP 16
[2023-09-12] MEDS: OLANZapine 5 MG TAB PO SCH (21:54)
[2023-09-12 22:21] VITALS: BP 120/82; PULSE 97; RESP 17; TEMP 97.2; O2SAT 100
[2023-09-13 05:00] VITALS: BP 120/92; PULSE 84; RESP 18; TEMP 97.1; O2SAT 94
[2023-09-13] MEDS: PANTOPRAZOLE 40 MG TAB PO SCH (08:23)
[2023-09-13 08:30] VITALS: BP_SYST 118; BP_SYST 125; BP_DIAS 87; BP_DIAS 91; PULSE 89; PULSE 98; RESP 19; TEMP 97.5; TEMP 97.9; O2SAT 93; O2SAT 94
[2023-09-13 13:00] VITALS: BP 123/80; PULSE 87; RESP 18
[2023-09-13 13:50] VITALS: BP 123/80; PULSE 87; RESP 19
[2023-09-13 16:50] VITALS: BP 107/73; PULSE 79; RESP 18; TEMP 97.9; O2SAT 99
[2023-09-13 20:00] VITALS: PULSE 79; RESP 18; O2SAT 97
[2023-09-14 05:00] VITALS: BP 110/55; PULSE 82; RESP 21; O2SAT 99
[2023-09-14 08:48] VITALS: BP 96/65; PULSE 95; RESP 18; TEMP 97.6; O2SAT 99
[2023-09-14 13:00] VITALS: BP 102/71; PULSE 98; RESP 20; TEMP 98; O2SAT 99
[2023-09-14] MEDS: FLUoxetine HCL 20 MG CAP PO SCH (14:00)
[2023-09-14 14:35] LABS: Basophils # (auto) 0 10 ^3/uL (0-0.2); Eosinophils # (auto) 0.3 10 ^3/uL (0-0.8); Lymphocytes # (auto) 1.3 10 ^3/uL (0.4-5.4); Monocytes # (auto) 0.4 10 ^3/uL (0-1.3); Neutrophils # (auto) 1.4 10 ^3/uL (1.6-8.6)
[2023-09-14 14:37] LABS: Basophils % (auto) 0.7 % (0.0-2.0); Eosinophils % (auto) 7.9 % (0.0-7.0); Hematocrit 33.2 % (36.0-46.0); Lymphocytes % (auto) 38.3 % (10.0-50.0); Mean Corpuscular Hemoglobin 26.9 pg (28.0-32.0); Mean Corpuscular Hgb Conc. 33.1 g/dL (32.0-36.0); Mean Corpuscular Volume 81.3 fL (80.0-100.0); Monocytes % (auto) 11.2 % (0.0-12.0); Neutrophils % (auto) 41.9 % (37.0-80.0); Red Blood Cells 4.08 10^6/uL (4.0-5.20); Red Cell Distribution Width 16.6 % (11.8-14.3); White Blood Cell 3.5 10^3/uL (4.4-10.8)
[2023-09-14 14:57] LABS: Alanine Aminotransferase 26 U/L (7-40); Albumin 2.8 g/dL (3.2-4.8); Alkaline Phosphatase 90 U/L (46-116); Anion Gap 7 (5-15); Aspartate Aminotransferase 47 U/L (13-40); BUN/Creatinine Ratio 7.9 (10.0-20.0); Bilirubin, Total 0.3 mg/dL (0.2-1.0); Blood Urea Nitrogen 9 mg/dL (9-23); Carbon Dioxide 25 mmol/L (20-30); Chloride 110 mmol/L (98-107); Glucose 109 mg/dL (74-106); Magnesium 1.6 mg/dL (1.6-2.6); Phosphorus 3.8 mg/dL (2.4-5.1); Potassium 3.7 mmol/L (3.5-5.1); Sodium 142 mmol/L (136-145)
[2023-09-14 14:58] LABS: Total Protein 5.6 g/dL (5.7-8.2)
[2023-09-14 16:32] VITALS: BP 117/84; PULSE 98; RESP 20; TEMP 98.2; O2SAT 99
[2023-09-14 20:00] VITALS: PULSE 106; RESP 20; O2SAT 99
[2023-09-14 21:40] VITALS: BP 110/79; PULSE 90; RESP 20; TEMP 98; O2SAT 99
[2023-09-15 05:00] VITALS: BP 112/75; PULSE 97; RESP 73; TEMP 97.6; O2SAT 97
[2023-09-15 09:12] VITALS: BP 105/77; PULSE 81; RESP 16; TEMP 96.1; O2SAT 97
[2023-09-15 16:34] VITALS: BP 117/92; PULSE 87; RESP 16; TEMP 98.6; O2SAT 100
[2023-09-15 20:00] VITALS: RESP 18; O2SAT 100
[2023-09-15 22:00] VITALS: BP 126/89; PULSE 18; RESP 79; TEMP 98; O2SAT 96
[2023-09-16 05:31] VITALS: BP 119/64; PULSE 69; RESP 20; TEMP 98; O2SAT 97
[2023-09-16 07:30] VITALS: O2SAT 100
[2023-09-16 09:05] VITALS: BP 116/74; PULSE 86; RESP 17; TEMP 98; O2SAT 99
[2023-09-16 13:06] VITALS: BP 101/51; PULSE 70; RESP 16; TEMP 98.4; O2SAT 100
[2023-09-16 16:45] VITALS: BP 110/63; PULSE 72; RESP 17; TEMP 98; O2SAT 100
[2023-09-16 20:05] VITALS: O2SAT 100
[2023-09-17 05:20] VITALS: BP 98/65; PULSE 99; RESP 19; O2SAT 92
[2023-09-17 08:00] VITALS: O2SAT 100
[2023-09-17 09:00] VITALS: BP 90/55; PULSE 87; RESP 19; O2SAT 100
[2023-09-17 13:00] VITALS: BP 101/80; PULSE 87; RESP 18; TEMP 96.1; O2SAT 98
[2023-09-17 20:00] VITALS: BP 90/55; PULSE 87; TEMP 35.6; O2SAT 100
[2023-09-18 08:00] VITALS: O2SAT 100
[2023-09-18 09:00] VITALS: PULSE 86; RESP 20; O2SAT 91
[2023-09-18 13:00] VITALS: BP 107/56; PULSE 86; RESP 16; TEMP 97.6; O2SAT 97
[2023-09-19] MEDS: HALOPERIDOL LACTATE 5 MG/ML INJ VIAL IM PRN (03:13)
[2023-09-19 05:00] VITALS: BP 102/53; PULSE 82; RESP 20; TEMP 97.9; O2SAT 92
[2023-09-19] MEDS: QUEtiapine FUMARATE 25 MG TAB PO SCH (12:38)
[2023-09-20 04:55] VITALS: BP 103/84; PULSE 68; RESP 15; O2SAT 98
[2023-09-20 09:00] VITALS: BP 84/46; PULSE 62; RESP 20; O2SAT 100
[2023-09-20 11:33] VITALS: BP 116/55; PULSE 89; RESP 18
[2023-09-20 13:00] VITALS: BP 101/68; PULSE 70; RESP 14; O2SAT 97
[2023-09-20 22:00] VITALS: BP 104/67; PULSE 83; RESP 16; O2SAT 95
[2023-09-21] VITALS (7 sets, daily range): BP systolic 100–132; BP diastolic 50–72; PULSE 57–79; RESP 16–19; O2SAT 96–100
[2023-09-22] VITALS (77 sets, daily range): BP systolic 69–145; BP diastolic 26–114; PULSE 43–111; RESP 6–22; TEMP 88.7–97.9; O2SAT 94–100
[2023-09-22 06:52] LABS: Base Excess -2.9 mmol/L (-2.0-2.0)
[2023-09-22] MEDS: D5W/SOD CHL 0.45% 1,000 ML IV SCH (07:21)
[2023-09-22 07:50] LABS: Basophils # (auto) 0 10 ^3/uL (0-0.2); Basophils % (auto) 0.6 % (0.0-2.0); Eosinophils # (auto) 0.2 10 ^3/uL (0-0.8); Lymphocytes # (auto) 0.9 10 ^3/uL (0.4-5.4); Monocytes # (auto) 0.3 10 ^3/uL (0-1.3); Neutrophils # (auto) 1.9 10 ^3/uL (1.6-8.6); White Blood Cell 3.3 10^3/uL (4.4-10.8)
[2023-09-22 07:51] LABS: Hematocrit 33.4 % (36.0-46.0); Hemoglobin 10.5 g/dL (12.2-16.2); Lymphocytes % (auto) 27.9 % (10.0-50.0); Mean Corpuscular Hemoglobin 26.6 pg (28.0-32.0); Mean Corpuscular Hgb Conc. 31.4 g/dL (32.0-36.0); Mean Corpuscular Volume 84.8 fL (80.0-100.0); Monocytes % (auto) 9.1 % (0.0-12.0); Neutrophils % (auto) 57.4 % (37.0-80.0); Nucleated Red Blood Cells % 0.2 %; Red Blood Cells 3.94 10^6/uL (4.0-5.20)
[2023-09-22 08:16] LABS: Alanine Aminotransferase 25 U/L (7-40); Albumin 2.7 g/dL (3.2-4.8); Alkaline Phosphatase 97 U/L (46-116); Anion Gap 9 (5-15); Aspartate Aminotransferase 66 U/L (13-40); BUN/Creatinine Ratio 5.6 (10.0-20.0); Blood Urea Nitrogen 8 mg/dL (9-23); Calcium 9.1 mg/dL (8.5-10.1); Carbon Dioxide 21 mmol/L (20-30); Chloride 112 mmol/L (98-107); Glucose 89 mg/dL (74-106); Potassium 3.7 mmol/L (3.5-5.1); Sodium 142 mmol/L (136-145)
[2023-09-22 08:17] LABS: Bilirubin, Total 0.4 mg/dL (0.2-1.0); Total Protein 5.4 g/dL (5.7-8.2)
[2023-09-22 08:28] LABS: Thyroid Stimulating Hormone 4.19 uIU/mL (0.55-4.78)
[2023-09-22] MEDS: NOREPINEPHRINE 8 MG/250ML KIT 250 ML IV ONE (08:30)
[2023-09-22 08:33] LABS: Beta HCG, Quantitative 0.9 mIU/mL (1.5-4.2)
[2023-09-22] MEDS: SODIUM CHLORIDE 0.9% 3,250 ML IV ONE ×2 (09:30→12:30)
[2023-09-22 10:27] LABS: Urine Epithelial Cast None Seen /hpf (<5)
[2023-09-22 11:10] LABS: Urine Bacteria FEW /hpf (None Seen); Urine Blood 3+ /uL (Negative); Urine Clarity CLOUDY (Clear); Urine Color Yellow (Yellow); Urine Hyaline Cast MANY /lpf (0 - 2); Urine Mucus FEW (None Seen); Urine Protein, UAD 1+ (Negative); Urine Specific Gravity 1.017 (1.001-1.035); Urine WBC 13 /hpf (0 - 5)
[2023-09-22 11:15] LABS: Amphetamine Screen, Urine Neg (NEGATIVE); Barbiturate Scree,Urine Neg (NEGATIVE); Benzodiazephine Screen, Urine Neg (NEGATIVE); Cocaine Screen, Urine Neg (NEGATIVE); Opiate Scree,Urine Neg (NEGATIVE)
[2023-09-22 11:16] LABS: Cannabinoid Screen, Urine Neg (NEGATIVE); Phencyclidine Screen, Urine Neg (NEGATIVE)
[2023-09-22 11:25] LABS: INR 1.14 (0.9-1.15); Partial Thromboplastin Time 35.1 SEC (24.5-34.5); Prothrombin Time 11.9 sec (9.3-11.8)
[2023-09-22] MEDS: NOREPINEPHRINE 8 MG/250ML KIT 250 ML IV SCH (12:15)
[2023-09-22] MEDS: LIDOCAINE 1% (LOCAL ANESTH.) PF 5ml SDV ID ONE (12:25)
[2023-09-22] MEDS ORDERED: VANCOMYCIN PER PHARMACY 0 MG IV SCH (17:15)
[2023-09-22] MEDS: CEFTRIAXONE SODIUM 2 GM in D5W 5% 100 ML IV ONE (18:23)
[2023-09-22] MEDS: VANCOMYCIN 1GM/200ML 200 ML IV SCH (19:51)
[2023-09-22] MEDS: DEXTROSE (50%) 50ML SYRG IV PRN (22:40)
[2023-09-22] MEDS: SODIUM CHLOR 0.9% PF (SALINE LOCK) 10ML VIAL/SYR IV SCH (23:04)
[2023-09-23] VITALS (74 sets, daily range): BP systolic 79–260; BP diastolic 43–205; PULSE 81–110; RESP 10–24; TEMP 96.6–98.4; O2SAT 90–100
[2023-09-23 01:41] LABS: Base Excess -6.1 mmol/L (-2.0-2.0)
[2023-09-23 05:52] LABS: Basophils # (auto) 0 10 ^3/uL (0-0.2); Eosinophils # (auto) 0.1 10 ^3/uL (0-0.8); Eosinophils % (auto) 1.4 % (0.0-7.0); Hemoglobin 9.9 g/dL (12.2-16.2); Lymphocytes # (auto) 0.5 10 ^3/uL (0.4-5.4); Monocytes # (auto) 0.6 10 ^3/uL (0-1.3); Nucleated Red Blood Cells % 0.3 %
[2023-09-23 05:55] LABS: Basophils % (auto) 0.2 % (0.0-2.0); Hematocrit 31.3 % (36.0-46.0); Lymphocytes % (auto) 6.1 % (10.0-50.0); Mean Corpuscular Hemoglobin 27.1 pg (28.0-32.0); Mean Corpuscular Hgb Conc. 31.7 g/dL (32.0-36.0); Mean Corpuscular Volume 85.5 fL (80.0-100.0); Monocytes % (auto) 7.2 % (0.0-12.0); Neutrophils # (auto) 6.6 10 ^3/uL (1.6-8.6); Neutrophils % (auto) 85.1 % (37.0-80.0); Red Blood Cells 3.66 10^6/uL (4.0-5.20); Red Cell Distribution Width 18.4 % (11.8-14.3); White Blood Cell 7.8 10^3/uL (4.4-10.8)
[2023-09-23] MEDS: COSYNTROPIN INJ 0.25 MG VIAL IM ONE (08:45)
[2023-09-23] MEDS: SODIUM CHLORIDE 0.9% 3,250 ML IV ONE (09:23)
[2023-09-23 09:32] LABS: Chloride 110 mmol/L (98-107); Potassium 3.6 mmol/L (3.5-5.1); Sodium 140 mmol/L (136-145)
[2023-09-23] MEDS: CEFTRIAXONE SODIUM 2 GM in D5W 5% 100 ML IV SCH (09:33)
[2023-09-23 09:36] LABS: Calcium 8.7 mg/dL (8.5-10.1); Carbon Dioxide 18 mmol/L (20-30)
[2023-09-23 09:41] LABS: Alkaline Phosphatase 116 U/L (46-116); BUN/Creatinine Ratio 5.7 (10.0-20.0); Blood Urea Nitrogen 10 mg/dL (9-23); Glucose 143 mg/dL (74-106)
[2023-09-23 09:43] LABS: Alanine Aminotransferase 29 U/L (7-40); Albumin 2.8 g/dL (3.2-4.8); Aspartate Aminotransferase 54 U/L (13-40); Bilirubin, Total 0.3 mg/dL (0.2-1.0); Total Protein 5.8 g/dL (5.7-8.2)
[2023-09-23] MEDS: D5W/SOD CHLO 0.9% 1,000 ML IV SCH (11:42)
[2023-09-23 14:16] LABS: Anion Gap 12 (5-15)
[2023-09-23 21:06] LABS: Chlamydia Trachomatis, NAA Negative (Negative); Neisseria gonorrhoeae, NAA Negative (Negative)
[2023-09-23] MEDS: AMINO ACID INFUSION IN D10W 1,000 ML IV SCH (21:30)
[2023-09-23] MEDS ORDERED: TPN PER PHARMACY 0 ML IV SCH (22:45)
[2023-09-24] VITALS (61 sets, daily range): BP systolic 90–147; BP diastolic 40–118; PULSE 91–122; RESP 10–21; TEMP 97.8–98.8; O2SAT 96–100
[2023-09-24 05:15] LABS: Alanine Aminotransferase 22 U/L (7-40); Albumin 2.4 g/dL (3.2-4.8); Alkaline Phosphatase 97 U/L (46-116); Anion Gap 10 (5-15); Aspartate Aminotransferase 38 U/L (13-40); BUN/Creatinine Ratio 6.1 (10.0-20.0); Bilirubin, Total 0.2 mg/dL (0.2-1.0); Blood Urea Nitrogen 11 mg/dL (9-23); Carbon Dioxide 18 mmol/L (20-30); Chloride 117 mmol/L (98-107); Glucose 104 mg/dL (74-106); Phosphorus 2.9 mg/dL (2.4-5.1); Potassium 3.3 mmol/L (3.5-5.1); Triglycerides 92 mg/dL (< 150)
[2023-09-24 05:36] LABS: Sodium 145 mmol/L (136-145)
[2023-09-24 06:08] LABS: Magnesium 1.6 mg/dL (1.6-2.6)
[2023-09-24 06:32] LABS: Basophils # (auto) 0 10 ^3/uL (0-0.2); Basophils % (auto) 0.5 % (0.0-2.0); Eosinophils # (auto) 0.1 10 ^3/uL (0-0.8); Eosinophils % (auto) 2.1 % (0.0-7.0); Hematocrit 27.6 % (36.0-46.0); Hemoglobin 9.1 g/dL (12.2-16.2); Lymphocytes # (auto) 0.9 10 ^3/uL (0.4-5.4); Lymphocytes % (auto) 16.1 % (10.0-50.0); Mean Corpuscular Hgb Conc. 32.9 g/dL (32.0-36.0); Mean Corpuscular Volume 81.9 fL (80.0-100.0); Monocytes # (auto) 0.5 10 ^3/uL (0-1.3); Monocytes % (auto) 9.2 % (0.0-12.0); Neutrophils # (auto) 4.2 10 ^3/uL (1.6-8.6); Neutrophils % (auto) 72.1 % (37.0-80.0); Nucleated Red Blood Cells % 0.1 %; Red Blood Cells 3.37 10^6/uL (4.0-5.20); Red Cell Distribution Width 18.1 % (11.8-14.3); White Blood Cell 5.8 10^3/uL (4.4-10.8)
[2023-09-24] MEDS ORDERED: DEXTROSE (50%) 50ML SYRG IV SCH (09:00)
[2023-09-24] MEDS: POTASSIUM CHL 20MEQ/100ML 100 ML IV ONE (09:36)
[2023-09-24] MEDS: InsuLIN REG 1unit/0.01ml Soln (100units/ml) SC SCH (12:00)
[2023-09-24] MEDS: ACCU-CHEK COMFORT CURVE STRIP VI SCH (12:00)
[2023-09-24] MEDS: SODIUM BICARB 50mEq/50ml SYR 75 ML in SOD CHL 0.45% 1,000 ML IV SCH (14:43)
[2023-09-24] MEDS: MAGNESIUM SULFATE 1GM/100ML 100 ML IV SCH (14:44)
[2023-09-24] MEDS: ALBUMIN 25% 100 ML IV ONE (18:07)
[2023-09-24] MEDS: TPN PER PHARMACY IV NR (20:31)
[2023-09-24 20:51] LABS: Urine Bacteria FEW /hpf (None Seen); Urine Blood 1+ /uL (Negative); Urine Clarity Clear (Clear); Urine Color Colorless (Yellow); Urine Protein, UAD Negative (Negative); Urine Specific Gravity 1.005 (1.001-1.035); Urine Urobilinogen Normal (Negative); Urine WBC 2 /hpf (0 - 5)
[2023-09-24 20:54] LABS: Creatinine, Urine 26.85 mg/dL (30.0-125.0); Urine Protein/Creatinine Ratio 0.67
[2023-09-24 20:55] LABS: Amphetamine Screen, Urine Neg (NEGATIVE); Barbiturate Scree,Urine Neg (NEGATIVE); Benzodiazephine Screen, Urine Neg (NEGATIVE); Cannabinoid Screen, Urine Neg (NEGATIVE); Cocaine Screen, Urine Neg (NEGATIVE); Opiate Scree,Urine Neg (NEGATIVE); Phencyclidine Screen, Urine Neg (NEGATIVE)
[2023-09-25] VITALS (57 sets, daily range): BP systolic 108–157; BP diastolic 68–107; PULSE 65–100; RESP 9–23; TEMP 97.5–98.2; O2SAT 96–100
[2023-09-25 05:20] LABS: Basophils # (auto) 0 10 ^3/uL (0-0.2); Basophils % (auto) 0.4 % (0.0-2.0); Eosinophils # (auto) 0.2 10 ^3/uL (0-0.8); Eosinophils % (auto) 3.5 % (0.0-7.0); Hematocrit 26.8 % (36.0-46.0); Hemoglobin 8.8 g/dL (12.2-16.2); Lymphocytes # (auto) 0.9 10 ^3/uL (0.4-5.4); Lymphocytes % (auto) 16.5 % (10.0-50.0); Mean Corpuscular Hgb Conc. 32.9 g/dL (32.0-36.0); Mean Corpuscular Volume 81.8 fL (80.0-100.0); Monocytes # (auto) 0.7 10 ^3/uL (0-1.3); Monocytes % (auto) 12.7 % (0.0-12.0); Neutrophils # (auto) 3.5 10 ^3/uL (1.6-8.6); Neutrophils % (auto) 66.9 % (37.0-80.0); Red Blood Cells 3.28 10^6/uL (4.0-5.20); White Blood Cell 5.2 10^3/uL (4.4-10.8)
[2023-09-25 05:41] LABS: Alanine Aminotransferase 15 U/L (7-40); Albumin 2.9 g/dL (3.2-4.8); Alkaline Phosphatase 93 U/L (46-116); Anion Gap 8 (5-15); Aspartate Aminotransferase 38 U/L (13-40); BUN/Creatinine Ratio 8.2 (10.0-20.0); Blood Urea Nitrogen 13 mg/dL (9-23); Calcium 8.5 mg/dL (8.7-10.4); Carbon Dioxide 20 mmol/L (20-30); Chloride 122 mmol/L (98-107); Glucose 118 mg/dL (74-106); Magnesium 2.2 mg/dL (1.6-2.6); Phosphorus 2.8 mg/dL (2.4-5.1); Potassium 3.6 mmol/L (3.5-5.1)
[2023-09-25 05:42] LABS: Bilirubin, Total 0.2 mg/dL (0.2-1.0); Total Protein 5.7 g/dL (5.7-8.2)
[2023-09-25 05:55] LABS: Sodium 150 mmol/L (136-145)
[2023-09-25] MEDS: D5W 5% 1,000 ML IV SCH ×2 (15:04→22:11)
[2023-09-25] MEDS: TPN PER PHARMACY IV NR (19:50)
[2023-09-26] VITALS (49 sets, daily range): BP systolic 113–157; BP diastolic 69–96; PULSE 63–97; RESP 9–21; TEMP 96.8–98.4; O2SAT 96–100
[2023-09-26 05:22] LABS: Alanine Aminotransferase 12 U/L (7-40); Albumin 2.9 g/dL (3.2-4.8); Alkaline Phosphatase 99 U/L (46-116); Anion Gap 7 (5-15); Aspartate Aminotransferase 28 U/L (13-40); BUN/Creatinine Ratio 8.6 (10.0-20.0); Bilirubin, Total 0.2 mg/dL (0.2-1.0); Blood Urea Nitrogen 12 mg/dL (9-23); Calcium 8.8 mg/dL (8.7-10.4); Carbon Dioxide 22 mmol/L (20-30); Chloride 123 mmol/L (98-107); Glucose 107 mg/dL (74-106); Magnesium 2.3 mg/dL (1.6-2.6); Phosphorus 3.1 mg/dL (2.4-5.1); Potassium 3.9 mmol/L (3.5-5.1); Sodium 152 mmol/L (136-145); Total Protein 5.6 g/dL (5.7-8.2)
[2023-09-26] MEDS: D5W 5% 1,000 ML IV SCH (12:48)
[2023-09-26] MEDS: TPN PER PHARMACY IV NR (19:38)
[2023-09-27] VITALS (37 sets, daily range): BP systolic 117–154; BP diastolic 69–118; PULSE 89–103; RESP 9–19; TEMP 97.7–98.6; O2SAT 96–99
[2023-09-27 05:01] LABS: Alkaline Phosphatase 100 U/L (46-116); Anion Gap 5 (5-15); Aspartate Aminotransferase 18 U/L (13-40); BUN/Creatinine Ratio 12.9 (10.0-20.0); Blood Urea Nitrogen 17 mg/dL (9-23); Carbon Dioxide 26 mmol/L (20-30); Chloride 120 mmol/L (98-107); Glucose 131 mg/dL (74-106); Magnesium 2.1 mg/dL (1.6-2.6); Potassium 3.9 mmol/L (3.5-5.1); Sodium 151 mmol/L (136-145)
[2023-09-27 05:02] LABS: Albumin 2.7 g/dL (3.2-4.8); Bilirubin, Total 0.2 mg/dL (0.2-1.0); Phosphorus 2.5 mg/dL (2.4-5.1); Total Protein 5.4 g/dL (5.7-8.2)
[2023-09-27 05:04] LABS: Alanine Aminotransferase 9 U/L (7-40)
[2023-09-27] MEDS: TPN PER PHARMACY IV NR (19:29)
[2023-09-28] VITALS (24 sets, daily range): BP systolic 99–154; BP diastolic 61–99; PULSE 90–113; RESP 10–19; TEMP 97.5–98.8; O2SAT 87–100
[2023-09-28 04:53] LABS: Alanine Aminotransferase 10 U/L (7-40); Albumin 2.9 g/dL (3.2-4.8); Alkaline Phosphatase 118 U/L (46-116); Anion Gap 6 (5-15); Aspartate Aminotransferase 18 U/L (13-40); BUN/Creatinine Ratio 13.6 (10.0-20.0); Bilirubin, Total 0.2 mg/dL (0.2-1.0); Blood Urea Nitrogen 17 mg/dL (9-23); Carbon Dioxide 26 mmol/L (20-30); Chloride 115 mmol/L (98-107); Glucose 110 mg/dL (74-106); Phosphorus 2.9 mg/dL (2.4-5.1); Potassium 4.1 mmol/L (3.5-5.1); Sodium 147 mmol/L (136-145); Total Protein 5.6 g/dL (5.7-8.2)
[2023-09-28] MEDS ORDERED: hydrALAZINE HCL 20 MG/ML VL IV PRN (07:45)
[2023-09-28 11:06] LABS: % Iron Saturation 36.3 % (15-50)
[2023-09-28 14:26] LABS: Basophils # (auto) 0 10 ^3/uL (0-0.2); Basophils % (auto) 0.5 % (0.0-2.0); Eosinophils # (auto) 0.7 10 ^3/uL (0-0.8); Eosinophils % (auto) 11.5 % (0.0-7.0); Hematocrit 28.7 % (36.0-46.0); Hemoglobin 9.1 g/dL (12.2-16.2); Lymphocytes # (auto) 1.3 10 ^3/uL (0.4-5.4); Lymphocytes % (auto) 20.7 % (10.0-50.0); Mean Corpuscular Hemoglobin 26.7 pg (28.0-32.0); Mean Corpuscular Hgb Conc. 31.7 g/dL (32.0-36.0); Monocytes # (auto) 0.6 10 ^3/uL (0-1.3); Neutrophils # (auto) 3.8 10 ^3/uL (1.6-8.6); Neutrophils % (auto) 58.3 % (37.0-80.0); Red Blood Cells 3.42 10^6/uL (4.0-5.20); Red Cell Distribution Width 18.2 % (11.8-14.3); White Blood Cell 6.5 10^3/uL (4.4-10.8)
[2023-09-28] MEDS: TPN PER PHARMACY IV NR (20:16)
[2023-09-29] VITALS (12 sets, daily range): BP systolic 114–134; BP diastolic 88–94; PULSE 80–100; RESP 16–18; TEMP 98–98.6; O2SAT 95–99
[2023-09-29 05:10] LABS: Basophils # (auto) 0 10 ^3/uL (0-0.2); Basophils % (auto) 0.3 % (0.0-2.0); Eosinophils # (auto) 0.6 10 ^3/uL (0-0.8); Eosinophils % (auto) 8.9 % (0.0-7.0); Hematocrit 28.2 % (36.0-46.0); Hemoglobin 9.2 g/dL (12.2-16.2); Lymphocytes # (auto) 1.2 10 ^3/uL (0.4-5.4); Lymphocytes % (auto) 18.1 % (10.0-50.0); Mean Corpuscular Hemoglobin 26.6 pg (28.0-32.0); Mean Corpuscular Hgb Conc. 32.6 g/dL (32.0-36.0); Mean Corpuscular Volume 81.5 fL (80.0-100.0); Monocytes # (auto) 0.7 10 ^3/uL (0-1.3); Monocytes % (auto) 9.5 % (0.0-12.0); Neutrophils # (auto) 4.3 10 ^3/uL (1.6-8.6); Neutrophils % (auto) 63.2 % (37.0-80.0); Nucleated Red Blood Cells % 0.1 %; Red Blood Cells 3.47 10^6/uL (4.0-5.20); Red Cell Distribution Width 17.8 % (11.8-14.3); White Blood Cell 6.9 10^3/uL (4.4-10.8)
[2023-09-29 05:22] LABS: Albumin 2.9 g/dL (3.2-4.8); Alkaline Phosphatase 149 U/L (46-116); Anion Gap 6 (5-15); Aspartate Aminotransferase 20 U/L (13-40); BUN/Creatinine Ratio 16.5 (10.0-20.0); Blood Urea Nitrogen 22 mg/dL (9-23); Calcium 9.4 mg/dL (8.7-10.4); Carbon Dioxide 30 mmol/L (20-30); Chloride 110 mmol/L (98-107); Glucose 117 mg/dL (74-106); Magnesium 2.1 mg/dL (1.6-2.6); Potassium 4.3 mmol/L (3.5-5.1); Sodium 146 mmol/L (136-145)
[2023-09-29 05:23] LABS: Bilirubin, Total 0.2 mg/dL (0.2-1.0); Phosphorus 4.7 mg/dL (2.4-5.1); Total Protein 5.8 g/dL (5.7-8.2)
[2023-09-29 05:30] LABS: Alanine Aminotransferase < 9 U/L (7-40)
[2023-09-29] MEDS: TPN PER PHARMACY IV NR (20:20)
[2023-09-30] VITALS (7 sets, daily range): BP systolic 111–142; BP diastolic 69–89; PULSE 74–93; RESP 16–18; TEMP 97.3–98; O2SAT 96–98
[2023-09-30 06:34] LABS: Albumin 3.2 g/dL (3.2-4.8); Alkaline Phosphatase 161 U/L (46-116); Anion Gap 7 (5-15); Aspartate Aminotransferase 20 U/L (13-40); Bilirubin, Total 0.3 mg/dL (0.2-1.0); Blood Urea Nitrogen 24 mg/dL (9-23); Calcium 9.7 mg/dL (8.7-10.4); Carbon Dioxide 31 mmol/L (20-30); Chloride 108 mmol/L (98-107); Glucose 93 mg/dL (74-106); Magnesium 2.4 mg/dL (1.6-2.6); Phosphorus 5.4 mg/dL (2.4-5.1); Potassium 4.1 mmol/L (3.5-5.1); Sodium 146 mmol/L (136-145)
[2023-09-30 06:35] LABS: Total Protein 6.4 g/dL (5.7-8.2)
[2023-09-30 06:43] LABS: Alanine Aminotransferase 9 U/L (7-40)
[2023-09-30] MEDS: D5W 5% 1,000 ML IV SCH (16:48)
[2023-09-30] MEDS ORDERED: TPN PER PHARMACY IV NR (20:00)
[2023-10-01] VITALS (8 sets, daily range): BP systolic 91–118; BP diastolic 60–78; PULSE 75–100; RESP 15–20; TEMP 97.5–97.9; O2SAT 94–99
[2023-10-01 15:06] LABS: Chloride 109 mmol/L (98-107); Potassium 4.1 mmol/L (3.5-5.1); Sodium 144 mmol/L (136-145)
[2023-10-01 15:07] LABS: Anion Gap 6 (5-15); Calcium 9.4 mg/dL (8.7-10.4); Carbon Dioxide 29 mmol/L (20-30)
[2023-10-01 15:12] LABS: BUN/Creatinine Ratio 13.2 (10.0-20.0); Blood Urea Nitrogen 23 mg/dL (9-23); Glucose 120 mg/dL (74-106)
[2023-10-02] VITALS (7 sets, daily range): BP systolic 93–131; BP diastolic 56–73; PULSE 80–96; RESP 17–20; TEMP 97.6–98.1; O2SAT 95–99
[2023-10-02 07:23] LABS: Basophils # (auto) 0 10 ^3/uL (0-0.2); Eosinophils # (auto) 0.5 10 ^3/uL (0-0.8); Hemoglobin 8.8 g/dL (12.2-16.2); Lymphocytes # (auto) 1.5 10 ^3/uL (0.4-5.4); Mean Corpuscular Volume 82.3 fL (80.0-100.0); Monocytes # (auto) 0.6 10 ^3/uL (0-1.3); Nucleated Red Blood Cells % 0.1 %; Red Blood Cells 3.28 10^6/uL (4.0-5.20)
[2023-10-02 07:26] LABS: Basophils % (auto) 0.7 % (0.0-2.0); Eosinophils % (auto) 7.6 % (0.0-7.0); Lymphocytes % (auto) 25.1 % (10.0-50.0); Mean Corpuscular Hgb Conc. 32.8 g/dL (32.0-36.0); Monocytes % (auto) 10.4 % (0.0-12.0); Neutrophils # (auto) 3.4 10 ^3/uL (1.6-8.6); Neutrophils % (auto) 56.2 % (37.0-80.0); Red Cell Distribution Width 16.7 % (11.8-14.3)
[2023-10-02 07:33] LABS: Alanine Aminotransferase 46 U/L (7-40); Alkaline Phosphatase 242 U/L (46-116); Anion Gap 5 (5-15); Aspartate Aminotransferase 73 U/L (13-40); BUN/Creatinine Ratio 13.6 (10.0-20.0); Blood Urea Nitrogen 24 mg/dL (9-23); Calcium 9.2 mg/dL (8.7-10.4); Carbon Dioxide 29 mmol/L (20-30); Chloride 107 mmol/L (98-107); Glucose 68 mg/dL (74-106); Potassium 3.8 mmol/L (3.5-5.1); Sodium 141 mmol/L (136-145)
[2023-10-02 07:34] LABS: Bilirubin, Total 0.3 mg/dL (0.2-1.0); Total Protein 6.2 g/dL (5.7-8.2)
[2023-10-02] MEDS: diazePAM 5 MG TAB PO ONE (07:58)
[2023-10-02] MEDS: D5W 5% 1,000 ML IV SCH (15:20)
[2023-10-03] VITALS (7 sets, daily range): BP systolic 104–154; BP diastolic 61–74; PULSE 79–96; RESP 16–19; TEMP 97.9–98.8; O2SAT 95–99
[2023-10-03 16:41] LABS: Chloride 103 mmol/L (98-107); Potassium 3.5 mmol/L (3.5-5.1); Sodium 137 mmol/L (136-145)
[2023-10-03 16:42] LABS: Anion Gap 5 (5-15); Calcium 8.7 mg/dL (8.7-10.4); Carbon Dioxide 29 mmol/L (20-30)
[2023-10-03 16:47] LABS: BUN/Creatinine Ratio 10.8 (10.0-20.0); Blood Urea Nitrogen 19 mg/dL (9-23); Glucose 83 mg/dL (74-106)
[2023-10-04] VITALS (7 sets, daily range): BP systolic 103–123; BP diastolic 63–73; PULSE 73–90; RESP 18–20; TEMP 97.3–98.6; O2SAT 95–100
[2023-10-04 13:47] LABS: Basophils # (auto) 0 10 ^3/uL (0-0.2); Basophils % (auto) 0.6 % (0.0-2.0); Eosinophils # (auto) 0.4 10 ^3/uL (0-0.8); Hematocrit 25.7 % (36.0-46.0); Hemoglobin 8.5 g/dL (12.2-16.2); Lymphocytes # (auto) 1.3 10 ^3/uL (0.4-5.4); Lymphocytes % (auto) 29.2 % (10.0-50.0); Mean Corpuscular Hemoglobin 27.3 pg (28.0-32.0); Mean Corpuscular Hgb Conc. 33.2 g/dL (32.0-36.0); Mean Corpuscular Volume 82.1 fL (80.0-100.0); Monocytes # (auto) 0.5 10 ^3/uL (0-1.3); Monocytes % (auto) 11.2 % (0.0-12.0); Neutrophils # (auto) 2.3 10 ^3/uL (1.6-8.6); Nucleated Red Blood Cells % 0.2 %; Red Blood Cells 3.13 10^6/uL (4.0-5.20); Red Cell Distribution Width 16.2 % (11.8-14.3); White Blood Cell 4.6 10^3/uL (4.4-10.8)
[2023-10-04 14:02] LABS: Alanine Aminotransferase 23 U/L (7-40); Alkaline Phosphatase 183 U/L (46-116); Anion Gap 5 (5-15); Aspartate Aminotransferase 37 U/L (13-40); BUN/Creatinine Ratio 9.2 (10.0-20.0); Blood Urea Nitrogen 16 mg/dL (9-23); Calcium 8.9 mg/dL (8.5-10.1); Carbon Dioxide 30 mmol/L (20-30); Chloride 101 mmol/L (98-107); Glucose 77 mg/dL (74-106); Potassium 3.3 mmol/L (3.5-5.1); Sodium 136 mmol/L (136-145)
[2023-10-04 14:03] LABS: Bilirubin, Total 0.3 mg/dL (0.2-1.0); Phosphorus 4.4 mg/dL (2.4-5.1)
[2023-10-05] VITALS (8 sets, daily range): BP systolic 77–110; BP diastolic 48–76; PULSE 78–108; RESP 18–20; TEMP 97.8–98.2; O2SAT 98–100
[2023-10-05] MEDS: SODIUM CHLORIDE 0.9% 1,000 ML IV SCH (10:30)
[2023-10-05] MEDS: SODIUM CHLORIDE 0.9% 500 ML IV ONE (10:43)
[2023-10-05] MEDS: LORazepam 2MG/ML-1ML VIAL IV PRN (12:17)
[2023-10-05] MEDS ORDERED: CATHFLO ACTIVASE (ALTEPLASE) 2 MG VIAL IV ONE (16:15)
[2023-10-05] MEDS: CATHFLO ACTIVASE (ALTEPLASE) 2 MG VIAL IV ONE (18:19)
[2023-10-06] VITALS (8 sets, daily range): BP systolic 88–123; BP diastolic 64–94; PULSE 89–108; RESP 16–18; TEMP 96.4–98; O2SAT 92–98
[2023-10-06 06:45] LABS: Basophils # (auto) 0 10 ^3/uL (0-0.2); Basophils % (auto) 0.7 % (0.0-2.0); Eosinophils # (auto) 0.4 10 ^3/uL (0-0.8); Eosinophils % (auto) 7.9 % (0.0-7.0); Hemoglobin 9.7 g/dL (12.2-16.2); Lymphocytes # (auto) 1.6 10 ^3/uL (0.4-5.4); Mean Corpuscular Hemoglobin 27.9 pg (28.0-32.0); Mean Corpuscular Hgb Conc. 33.6 g/dL (32.0-36.0); Monocytes # (auto) 0.4 10 ^3/uL (0-1.3); Monocytes % (auto) 9.5 % (0.0-12.0); Neutrophils # (auto) 2.1 10 ^3/uL (1.6-8.6); Neutrophils % (auto) 46.9 % (37.0-80.0); White Blood Cell 4.4 10^3/uL (4.4-10.8)
[2023-10-06 06:53] LABS: Anion Gap 9 (5-15); Carbon Dioxide 26 mmol/L (20-30); Chloride 104 mmol/L (98-107); Potassium 3.5 mmol/L (3.5-5.1); Sodium 139 mmol/L (136-145)
[2023-10-06 06:54] LABS: Calcium 9.1 mg/dL (8.7-10.4)
[2023-10-06 06:59] LABS: Blood Urea Nitrogen 11 mg/dL (9-23); Glucose 68 mg/dL (74-106); Magnesium 2.2 mg/dL (1.6-2.6)
[2023-10-06] MEDS: OLANZapine 5 MG TAB PO SCH (15:36)
[2023-10-06] MEDS: metroNIDAZOLE 500 MG TAB PO SCH (15:37)
[2023-10-07] VITALS (7 sets, daily range): BP systolic 103–145; BP diastolic 51–83; PULSE 74–106; RESP 18–20; TEMP 97.3–98.6; O2SAT 95–100
[2023-10-07] MEDS: FLUCONAZOLE 100 MG TAB PO SCH (09:15)
[2023-10-07] MEDS ORDERED: CATHFLO ACTIVASE (ALTEPLASE) 2 MG VIAL IV ONE (14:15)
[2023-10-08] MEDS: LORazepam 2MG/ML-1ML VIAL IV PRN (01:46)
[2023-10-08 08:38] VITALS: BP 111/63; PULSE 85; RESP 16; TEMP 97.8; O2SAT 99
[2023-10-08] MEDS: HALOPERIDOL LACTATE 5 MG/ML INJ VIAL IM PRN (11:53)
[2023-10-08 13:23] VITALS: BP 117/74; PULSE 90; RESP 17; TEMP 98; O2SAT 94
[2023-10-08 17:28] VITALS: BP 121/82; PULSE 73; RESP 16; TEMP 97.6; O2SAT 99
[2023-10-09] VITALS (7 sets, daily range): BP systolic 105–119; BP diastolic 74–80; PULSE 53–77; RESP 16–18; TEMP 97.6–98.1; O2SAT 96–100
[2023-10-09] MEDS: ONDANSETRON ODT 4 MG TAB PO PRN (13:41)
[2023-10-10 05:00] VITALS: BP 102/72; PULSE 85; RESP 18; TEMP 98; O2SAT 99
[2023-10-10 07:51] LABS: Chloride 108 mmol/L (98-107); Potassium 3.7 mmol/L (3.5-5.1); Sodium 143 mmol/L (136-145)
[2023-10-10 07:52] LABS: Anion Gap 10 (5-15); Calcium 9.6 mg/dL (8.5-10.1); Carbon Dioxide 25 mmol/L (20-30)
[2023-10-10 07:57] LABS: BUN/Creatinine Ratio 5.5 (10.0-20.0); Blood Urea Nitrogen 9 mg/dL (9-23); Glucose 56 mg/dL (74-106)
[2023-10-10 08:00] VITALS: PULSE 79; RESP 20; O2SAT 98
[2023-10-10 09:00] VITALS: BP 127/88; PULSE 79; RESP 20; TEMP 97.8; O2SAT 98
[2023-10-10 09:04] LABS: Magnesium 2.1 mg/dL (1.6-2.6)
[2023-10-10 13:00] VITALS: BP 103/71; PULSE 85; RESP 18; TEMP 97.9; O2SAT 96
[2023-10-10 17:35] VITALS: BP 124/79; PULSE 89; RESP 22; O2SAT 90
[2023-10-10 20:00] VITALS: PULSE 89; RESP 22; O2SAT 90
== END 2023-10-11 09:40 | DRG 133 ==
LOC: ER 09:00 → OVERFLOW 15:15 → CENTRAL 18:28 → TELE-CENTR 09-03 15:14 → TELE-WESTW 09-14 06:40 → DOU IN ICU 09-22 05:42 → ICU CENTRL 09-22 10:36 → DOU IN ICU 09-23 16:49 → TELE-WESTW 09-28 13:28 → TELE-EAST 10-10 20:18
PROVIDERS: ADMIT Nurse Practitioner; ATTEND Nurse Practitioner
PROC: 02HV33Z Insertion of Infusion Device into Superior Vena Cava, Percutaneous Approach (ICD-10-PCS; 2023-09-22)
PROC: 5A12012 Performance of Cardiac Output, Single, Manual (ICD-10-PCS; principal; 2023-10-11)
PROC: 0BH17EZ Insertion of Endotracheal Airway into Trachea, Via Natural or Artificial Opening (ICD-10-PCS; 2023-10-11)
DX: J96.01 Acute respiratory failure with hypoxia (principal); N17.0 Acute kidney failure with tubular necrosis; R57.9 Shock, unspecified; G93.41 Metabolic encephalopathy; E87.20 Acidosis, unspecified; R45.851 Suicidal ideations; D64.9 Anemia, unspecified; E11.22 Type 2 diabetes mellitus with diabetic chronic kidney disease; I46.9 Cardiac arrest, cause unspecified; E16.2 Hypoglycemia, unspecified; E11.65 Type 2 diabetes mellitus with hyperglycemia; S09.90XA Unspecified injury of head, initial encounter; E66.01 Morbid (severe) obesity due to excess calories; F17.200 Nicotine dependence, unspecified, uncomplicated; I25.10 Atherosclerotic heart disease of native coronary artery without angina pectoris; J44.9 Chronic obstructive pulmonary disease, unspecified; N39.0 Urinary tract infection, site not specified; X58.XXXA Exposure to other specified factors, initial encounter; E86.0 Dehydration; F23 Brief psychotic disorder; F39 Unspecified mood [affective] disorder; K57.30 Diverticulosis of large intestine without perforation or abscess without bleeding; N20.0 Calculus of kidney; R56.9 Unspecified convulsions; F32.9 Major depressive disorder, single episode, unspecified; E83.42 Hypomagnesemia; Z68.33 Body mass index [BMI] 33.0-33.9, adult; F44.9 Dissociative and conversion disorder, unspecified; E87.6 Hypokalemia; E87.8 Other disorders of electrolyte and fluid balance, not elsewhere classified; I12.9 Hypertensive chronic kidney disease with stage 1 through stage 4 chronic kidney disease, or unspecified chronic kidney disease; R00.1 Bradycardia, unspecified; R32 Unspecified urinary incontinence; N18.9 Chronic kidney disease, unspecified; Z82.49 Family history of ischemic heart disease and other diseases of the circulatory system; Z88.5 Allergy status to narcotic agent; Z79.899 Other long term (current) drug therapy; Z74.01 Bed confinement status; Z83.3 Family history of diabetes mellitus; Z86.16 Personal history of COVID-19; Z87.01 Personal history of pneumonia (recurrent); Z91.199 Patient's noncompliance with other medical treatment and regimen due to unspecified reason; Y93.89 Activity, other specified; Y92.89 Other specified places as the place of occurrence of the external cause; Y99.8 Other external cause status
CPT/HCPCS: 36415; 36569; 36600; 70450; 70551; 71045; 71275; 72128; 72131; 80048; 80053; 80061; 80307; 81001; 82140; 82533; 82570; 82728; 82805; 82962; 83036; 83540; 83550; 83605; 83735; 83880; 84100; 84112; 84156; 84295; 84443; 84478; 84484; 84702; 85007; 85025; 85027; 85379; 85610; 85730; 86592; 86703; 87040; 87077; 87081; 87086; 87088; 87186; 92610; 92950; 93005; 93306; 93970; 97110; 97116; 97163; 97530; C9113; G0378; J0696; J1815; J2405; J3480; J7042; J7060; P9047; Q0162